=== PATIENT | female | born 1985 | race Caucasian/White ===

== ENCOUNTER → 2020-07-02 10:44 | Outpatient (CLI) | payer OTHER, SELFPAY ==
--- NOTE | 2020-07-02 10:48 | DI.MRI.S_ITS ---
PROCEDURE: MR CERVICAL SPINE WO CON INDICATIONS: Hand numbness TECHNIQUE: Noncontrast sagittal T1 spin echo and T2 fast spin echo, sagittal STIR, foraminal oblique sagittal T2 fast spin echo, and axial gradient echo or T2 fast spin echo through the cervical spine. COMPARISON: None. FINDINGS: Image quality: Excellent. Alignment and Curvature: Loss of normal cervical lordosis is present. Bone Marrow: Marrow demonstrates normal overall signal. Spinal Cord: Visualized spinal cord has normal size and signal. No cerebellar tonsillar herniation. Paraspinous Soft Tissues: No paravertebral masses. Prevertebral soft tissues are normal in thickness. C2-C3: Normal appearance. C3-C4: Normal appearance. C4-C5: Normal appearance. C5-C6: Mild disc desiccation and diffuse disc bulge. Mild facet and uncovertebral hypertrophy bilaterally. Mild canal stenosis. Mild bilateral foraminal stenosis. C6-C7: Normal appearance. C7-T1: Mild facet and uncovertebral hypertrophy bilaterally. No canal stenosis. Mild bilateral foraminal stenosis. IMPRESSION: 1. Multilevel degenerative disc and facet disease, as well as uncovertebral hypertrophy. 2. Mild multilevel canal and foraminal stenoses. No neural impingement. Dictated by: Ray Ramesh M.D. on 07/02/2020 at 11:29 Approved by: Ray Ramesh M.D. on 07/02/2020 at 11:30
== END ==
PROVIDERS: Referring Provider Physical Medicine & Rehabilitation; Visit Provider Physical Medicine & Rehabilitation
DX: R20.0 Anesthesia of skin (principal); M50.322 Other cervical disc degeneration at C5-C6 level; M48.02 Spinal stenosis, cervical region
CPT/HCPCS: 72141

== ENCOUNTER 2020-12-04 17:56 | Outpatient (CLI) | payer OTHER, SELFPAY | END 2020-12-04 18:26 | disposition home or self-care (01) | LOC: LABOR 18:08 → OB 12-05 08:43 | PROVIDERS: Referring Provider Nurse Practitioner Obstetrics & Gynecology; Visit Provider Nurse Practitioner Obstetrics & Gynecology | DX: O30.002 Twin pregnancy, unspecified number of placenta and unspecified number of amniotic sacs, second trimester (principal); Z3A.24 24 weeks gestation of pregnancy | CPT/HCPCS: G0378; G0379 ==

== ENCOUNTER 2020-12-04 18:35 | Emergency (ER) | payer OTHER, SELFPAY ==
[2020-12-04 18:59] VITALS: BP 120/84; PULSE 76; RESP 16; TEMP 36.5; O2SAT 99
[2020-12-04 19:21] LABS: RBC Urine None Seen (0-5/HPF)
[2020-12-04 19:25] LABS: Appearance Urine UA CLEAR; Bilirubin Urine UA NEGATIVE (NEGATIVE); Color Urine UA YELLOW; Glucose Urine UA NEGATIVE (Negative); Ketones Urine UA NEGATIVE (NEGATIVE); Leukocyte Esterase Urine UA NEGATIVE (NEGATIVE); Nitrite Urine UA NEGATIVE (Negative); Occult Blood Urine UA NEGATIVE (Negative); Protein Urine UA NEGATIVE (Negative); Urobilinogen Urine UA 0.2 E.U./dL (0.2)
[2020-12-04 19:37] LABS: Squamous Epithelial Cell Urine 1-5 /HPF (0-5/HPF); WBC Urine 0-1/HPF (0-5/HPF)
[2020-12-04 19:38] LABS: Bacteria Urine Moderate (10-30); Culture Indicated Urine Cult Not Indicated
--- NOTE | 2020-12-04 19:42 | ED.ABDPAIN ---
HPI - Abdominal Pain General Chief Complaint: Abdominal Pain Stated Complaint: Pelvic,Low Back, Hip Pain, 25 Wks Preg, BC Sent Ba Time Seen by Provider: 12/04/20 19:26 History of Present Illness HPI narrative: 35-year-old female nonsmoker at 25 weeks presents with her in the chief complaint of about 8 weeks of worsening right lower quadrant pain with radiation to her back. She states it is significantly worse over the past few days. She seems to get worse when she moves and improves slightly with rest. She has nausea but denies any vomiting. She has had no fever or chills. She denies vaginal bleeding, discharge or leakage of fluid. She has had the occasional episode of difficulty with bowel movements. She does have a history of kidney stones. She went to labor and delivery prior to coming to see us and was given a clean bill of health and referred to us for further diagnostic efforts Related Data Allergies Allergy/AdvReac Type Severity Reaction Status Date / Time No Known Drug Allergies Allergy Verified 12/04/20 18:59 Review of Systems Review of Systems Narrative: GENERAL: Denies chills, fatigue, malaise, fever, sweats. HEENT: Denies sinus pain, ear pain, sore throat, difficulty swallowing, dizziness. RESPIRATORY: Denies dyspnea, cough, wheezing, hemoptysis, sputum. CARDIOVASCULAR: Denies chest pain, palpitations, orthopnea, edema, GASTROINTESTINAL: See HPI : Denies dysuria, frequency, incontinence, hematuria, urinary retention. MUSCULOSKELETAL: denies weakness, joint pain, or bony pain SKIN: Denies rash, skin lesions, or other NEUROLOGIC: Denies weakness, headache, numbness, change in speech, confusion, seizures, incoordination. PSYCHIATRIC: No concerning psychosocial issues. 12 point review of systems is negative except for those stated above Exam Narrative Exam Narrative: GENERAL: [35] year old patient appears stated age. Well-developed patient, in mild distress. HEAD: Atraumatic. Normocephalic. EYES: Pupils equal round and reactive. Extraocular motions intact. No scleral icterus. No injection or drainage. ENT: Nose without bleeding, purulent drainage. Throat without erythema, tonsillar hypertrophy or exudate. Airway patent. NECK: Trachea midline. Non tender CARDIOVASCULAR: Regular rate and rhythm without murmurs, gallops, or rubs. RESPIRATORY: Clear to auscultation. Breath sounds equal bilaterally. No wheezes, rales, or rhonchi. GASTROINTESTINAL: Abdomen soft, gravid above the umbilicus, nondistended. EXTREMITIES: No edema or joint tenderness. BACK: Nontender without deformity or crepitance. No flank tenderness. NEURO: AOx3. SKIN: No rash or erythema of visible areas Initial Vital Signs Initial Vital Signs: Vital Signs Temperature 97.7 F 12/04/20 18:59 Pulse Rate 76 12/04/20 18:59 Respiratory Rate 16 12/04/20 18:59 Blood Pressure 120/84 12/04/20 18:59 Pulse Oximetry 99 12/04/20 18:59 Course Orders Ordered: Discontinued Medications Acetaminophen (Acetaminophen 325 Mg Tablet) 975 mg PO NOW ONE Stop: 12/04/20 20:41 Last Admin: 12/04/20 21:32 Dose: 975 mg Documented by: [email or web address] Sodium Chloride (Normal Saline 0.9%) 1,000 mls @ 125 mls/hr IV CONT YAMILEX Last Infusion: 12/04/20 23:10 Dose: 0 mls/hr Documented by: JESUS MANUEL Admin: 12/04/20 20:10 Dose: 125 mls/hr Documented by: [email or web address] Lidocaine (Lidocaine Patch 1 Each Adh..Patch) 1 each TOP NOW ONE Stop: 12/04/20 23:45 Last Admin: 12/04/20 23:59 Dose: 1 each Documented by: JUSTIN Ondansetron HCl (Ondansetron 4 Mg/2 Ml Inj) 4 mg IV NOW ONE Stop: 12/04/20 19:51 Last Admin: 12/04/20 20:11 Dose: 4 mg Documented by: ANABELLA Vital Signs Vital signs: Vital Signs - 8 hr 12/04/20 23:00 12/04/20 23:30 Pulse Rate 66 70 Respiratory Rate 14 16 Blood Pressure 99/57 L 105/76 Pulse Oximetry 100 98 MDM - Abdominal Pain Lab Data Result diagrams: 12/04/20 20:07 12/04/20 20:07 Labs: Lab Results 12/04/20 12/04/20 12/04/20 Range/Units 19:03 20:07 20:07 WBC 14.7 H (4.5-11.0) X10^3/uL RBC 3.55 L (4.0-5.2) X10^6/uL Hgb 11.5 L (12.0-16.0) g/dL Hct 32.4 L (36-46) % MCV 91.3 (80-100) fL MCH 32.5 (26-34) PG MCHC 35.6 (30-36) % RDW 12.3 (11.6-14.8) % Plt Count 328 (150-400) X10^3/uL Neut % (Auto) 72.3 (50-75) % Lymph % (Auto) 21.4 L (25-40) % [place] % (Auto) 3.8 (3-14) % Eos % (Auto) 1.7 L (2-4) % Baso % (Auto) 0.8 (0-2) % Neut # (Auto) 37268 H (3938-8754) /uL Lymph # (Auto) 3200 (4730-4278) /uL [place] # (Auto) 600 (0-900) /uL Eos # (Auto) 300 (0-450) /uL Baso # (Auto) 100 (0-100) /uL Sodium 132 L (137-145) mmol/L Potassium 4.0 (3.4-5.1) mmol/L Chloride 108 H (98-107) mmol/L Carbon Dioxide 19 L (22-32) mmol/L BUN 12 (7-17) mg/dL Creatinine 0.43 L (0.52-1.04) mg/dL Estimated GFR > 60.0 (>60) mL/min BUN/Creatinine Ratio 27.9 H (6-22) Glucose 97 (70-100) mg/dL Calcium 9.4 (8.4-10.2) mg/dL Urine Color Yellow Urine Appearance Clear Urine pH 7.0 (4.5-8.0) Ur Specific [place] 1.010 (1.000-1.035) Urine Protein Negative (Negative) Urine Glucose (UA) Negative (Negative) g/dL Urine Ketones Negative (NEGATIVE) Urine Occult Blood Negative (Negative) Urine Nitrate Negative (Negative) Urine Bilirubin Negative (NEGATIVE) Urine Urobilinogen 0.2 (0.2) E.U./dL Ur Leukocyte Esterase Negative (NEGATIVE) Urine RBC None seen (0-5/HPF) Urine WBC 0-1/hpf (0-5/HPF) Ur Squamous Epith Cells 1-5 /hpf (0-5/HPF) Urine Bacteria Moderate (10-30) H (None) Ur Culture Indicated? Cult not indicated Imaging Data US - OB: Radiologist's Impression: No renal abnormality noted, bladder unremarkable, living twin gestation noted. No evidence of kidney stone or hydronephrosis of MDM Narrative Medical decision making narrative: Patient with very reassuring physical exam and chronic flank pain for upwards of 8 weeks. Labs, imaging, exam are reassuring. No evidence of gallbladder disease, hydronephrosis or hydroureter, UTI, pyelonephritis or other Patient is still having some discomfort on discharge, close follow-up recommended, return precautions given and questions answered to her apparent satisfaction. Discharge Plan Departure Patient Disposition: Home Clinical Impression: Chronic flank pain Instructions: DI for Acute Abdominal Pain Activity Restrictions/Additional Instructions: *You have been diagnosed with [flank pain, your urine shows no sign of infection. Ultrasound was very reassuring and there is no evidence of a kidney problem, kidney stone or infection.] *What to do: *Please continue to take your regular medications as directed. [ ] New medication prescriptions sent to your pharmacy: [ ] [ ] New medication written as a paper prescription [x ] No new medications given *Please follow up with your primary care provider in 2-3 days, call for an appointment. Let them know you were seen in the Emergency Department and that we ask that you be seen in follow up. We will electronically transmit a record of today's note if your PCP is in our system *If you do not have a primary care provider please contact the [facility] Resource line at [phone]. They will ask some questions about your medical history and help get you set up with a doctor in the community. *Return to Emergency Department if you should have any new, worsening or concerning symptoms, such as [fever greater than 101 F, shaking chills, worsening pain, persistent vomiting or other bothersome symptoms] Referrals: Bettie Priest MD [Physician] -
--- NOTE | 2020-12-04 19:50 | DI.US.S_ITS ---
PROCEDURE: US RENAL COMPLETE INDICATIONS: Right flank pain, history of stones, 25 weeks TECHNIQUE: Real-time scanning was performed of the kidneys and bladder, with image documentation. COMPARISON: None. FINDINGS: Kidneys: Kidneys are normal in size. Right kidney measures 10.1 cm long; left kidney measures 11.0 cm long. Right renal cortical thickness is 1.1 cm; left renal cortical thickness is 1.1 cm. Renal cortical echotexture is normal. No hydronephrosis or nephrolithiasis. No suspicious solid mass lesions. Bladder: Pre-void bladder volume is 123 mL. Post-void imaging was not performed. Neither ureteral jet identified. Miscellaneous: No free pelvic fluid. Living intrauterine twin noted. IMPRESSION: No hydronephrosis. No sonographic evidence of renal stones. Living intrauterine twin . Dictated by: Jazmin Carrasco MD, PhD on 12/05/2020 at 8:55 Approved by: Jazmin Carrasco MD, PhD on 12/05/2020 at 8:57
[2020-12-04 20:00] VITALS: BP 111/77; PULSE 71; RESP 17; O2SAT 98
[2020-12-04] MEDS: SODIUM CHLORIDE 0.9% 1,000 ML 125 ML IV (20:10)
[2020-12-04] MEDS: ONDANSETRON 4 MG/2 ML INJ IV (20:11)
[2020-12-04 20:29] LABS: Add Manual Diff / Slide Review NO; Basophils Absolute Auto 100 /uL (0-100); Basophils Percent Auto 0.8 % (0-2); Eosinophils Absolute Auto 300 /uL (0-450); Eosinophils Percent Auto 1.7 % (2-4); Hematocrit 32.4 % (36-46); Hemoglobin 11.5 g/dL (12.0-16.0); Lymphocytes Absolute Auto 3200 /uL (1100-4500); Lymphocytes Percent Auto 21.4 % (25-40); Mean Corpuscular HGB Conc 35.6 % (30-36); Mean Corpuscular Hemoglobin 32.5 PG (26-34); Mean Corpuscular Volume 91.3 fL (80-100); Monocytes Absolute Auto 600 /uL (0-900); Monocytes Percent Auto 3.8 % (3-14); Neutrophils Absolute Auto 10600 /uL (1500-7000); Neutrophils Percent Auto 72.3 % (50-75); Platelet Count 328 X10^3/uL (150-400); Red Blood Cell Count 3.55 X10^6/uL (4.0-5.2); Red Cell Distribution Width 12.3 % (11.6-14.8); White Blood Cell Count 14.7 X10^3/uL (4.5-11.0)
[2020-12-04 20:36] LABS: BUN Creatinine Ratio 27.9 (6-22); Blood Urea Nitrogen 12 mg/dL (7-17); Calcium 9.4 mg/dL (8.4-10.2); Carbon Dioxide 19 mmol/L (22-32); Chloride 108 mmol/L (98-107); Estimated Glomerular Filt Rate > 60.0 mL/min (>60); Glucose 97 mg/dL (70-100); HEMOLYSIS 21 (0-50); Sodium 132 mmol/L (137-145)
[2020-12-04 21:10] VITALS: BP 122/66; PULSE 66; RESP 18; O2SAT 100
[2020-12-04] MEDS: ACETAMINOPHEN 325 MG TABLET 975 MG PO (21:32)
[2020-12-04 23:00] VITALS: BP 99/57; PULSE 66; RESP 14; O2SAT 100
[2020-12-04 23:30] VITALS: BP 105/76; PULSE 70; RESP 16; O2SAT 98
[2020-12-04] MEDS: LIDOCAINE PATCH 1 EACH ADH..PATCH TOP (23:59)
== END 2020-12-05 | disposition home or self-care (01) ==
PROVIDERS: Emergency Provider Emergency Medicine
DX: O26.892 Other specified pregnancy related conditions, second trimester (principal); R10.31 Right lower quadrant pain; Z3A.25 25 weeks gestation of pregnancy
CPT/HCPCS: 36415; 76770; 80048; 81001; 85025; 96361; 96374; 99284; J2405

== ENCOUNTER → 2020-12-12 13:03 | Outpatient (CLI) | payer OTHER, SELFPAY ==
[2020-12-12 14:28] LABS: Hematocrit 33.2 % (36-46); Hemoglobin 11.7 g/dL (12.0-16.0)
[2020-12-12 15:29] LABS: GTT (PREG) 1 Hour PP 50gm Dose 109 mg/dL (76-139)
== END ==
PROVIDERS: Referring Provider Obstetrics & Gynecology; Visit Provider Obstetrics & Gynecology
DX: O30.042 Twin pregnancy, dichorionic/diamniotic, second trimester (principal)
CPT/HCPCS: 36415; 82950; 85014; 85018

== ENCOUNTER 2021-01-07 16:27 | Observation (INO) | payer OTHER, SELFPAY ==
--- NOTE | 2021-01-07 16:52 | DI.US.S_ITS ---
PROCEDURE: US OB LIMITED INDICATIONS: DECREASED MOVEMENT OUTSIDE/PRIOR DATING DATA: Last menstrual period (LMP): 06/15/2020. LMP-based estimated date of delivery (TJ): 03/22/2021. First dating scan (date and location): 01/07/2021. Estimated date of delivery (TJ) from first dating scan: 04/03/2021. TECHNIQUE: Real-time scanning was performed of the fetus, with image documentation. biometry was performed. COMPARISON: [facility], , OB >= 14 WEEKS FETUS, 12/12/2020, 12:54. FINDINGS: Dichorionic diamniotic intrauterine gestations are present. Presentation: Twin A/B are breech. Placenta: Placental position is posterior x 2, without previa. Amniotic fluid index: Twin A 13.4 cm; Twin B 20.2 cm. heart rate: Twin A 145 bpm; Twin B 152 bpm. Maternal cervical canal: 3.1 cm long. Normal lower limit is 2.5 cm. No funneling. biometry. Twin A: BPD: 7 cm, 28 weeks 1 day HC: 25.3 cm, 27 weeks 4 days AC: 23.3 cm, 27 weeks 5 days FL: 5.1 cm, 27 weeks 3 days Twin B: BPD: 7.3 cm, 29 weeks 2 days HC: 26 cm, 28 weeks 2 days AC: 21.4 cm, 26 weeks 0 days FL: 5.1 cm, 27 weeks 1 day Estimated gestational age from today's scan: Twin A/B: 27 weeks 5 days. Twin A: 1095 grams 3%; Twin B: 984 grams 1%. IMPRESSION: 1. Dichorionic diamniotic living intrauterine fetuses at 27 weeks 5 days based on today's ultrasound. Twin A is in the 3rd % and Twin B is in the 1st % for weight. Suspect intrauterine growth restriction. 2. Normal placentas and amniotic fluid. Dictated by: Doron Grimes M.D. on 01/07/2021 at 17:09 Approved by: Doron Grimes M.D. on 01/07/2021 at 17:22
[2021-01-07] MEDS: LACTATED RINGERS 1,000 ML 1000 ML IV (17:50)
[2021-01-07] MEDS: ONDANSETRON 4 MG/2 ML INJ IV (17:59)
[2021-01-07 18:32] LABS: Alanine Aminotransferase 143 IU/L (<35); Albumin 3.3 g/dL (3.5-5.0); Albumin Globulin Ratio 1.2 (1.0-2.8); Alkaline Phosphatase 166 U/L (38-126); Aspartate Aminotransferase 131 IU/L (14-36); BUN Creatinine Ratio 14.7 (6-22); Bilirubin Total 0.5 mg/dL (0.2-1.3); Blood Urea Nitrogen 14 mg/dL (7-17); Carbon Dioxide 21 mmol/L (22-32); Chloride 108 mmol/L (98-107); Estimated Glomerular Filt Rate > 60.0 mL/min (>60); Globulin 2.7 g/dL (1.7-4.1); Glucose 78 mg/dL (70-100); HEMOLYSIS 31 (0-50); Potassium 4.2 mmol/L (3.4-5.1); Sodium 136 mmol/L (137-145)
[2021-01-07] MEDS: METOCLOPRAMIDE 10 MG/2 ML INJ IV (18:51)
[2021-01-07] MEDS: LACTATED RINGERS 1,000 ML 120 ML IV (19:00)
[2021-01-07 19:23] LABS: COVID19 - ADMIT (NP swab/PCR) Negative (Negative)
[2021-01-07 20:01] LABS: Creatinine Urine Random 22.8 mg/dL; Protein Creatinine Ratio Urine 0.65 GRAM/24H
[2021-01-07 20:02] LABS: Protein (Total) Urine Random 15 mg/dL (0-12)
[2021-01-07 20:04] LABS: Add Manual Diff / Slide Review NO; Basophils Absolute Auto 100 /uL (0-100); Basophils Percent Auto 0.5 % (0-2); Eosinophils Absolute Auto 100 /uL (0-450); Eosinophils Percent Auto 0.9 % (2-4); Hematocrit 41.2 % (36-46); Hemoglobin 13.9 g/dL (12.0-16.0); Lymphocytes Absolute Auto 3400 /uL (1100-4500); Lymphocytes Percent Auto 25.8 % (25-40); Mean Corpuscular HGB Conc 33.7 % (30-36); Mean Corpuscular Hemoglobin 30.9 PG (26-34); Mean Corpuscular Volume 91.7 fL (80-100); Monocytes Absolute Auto 400 /uL (0-900); Monocytes Percent Auto 2.9 % (3-14); Neutrophils Absolute Auto 9300 /uL (1500-7000); Neutrophils Percent Auto 69.9 % (50-75); Platelet Count 281 X10^3/uL (150-400); Red Cell Distribution Width 13.5 % (11.6-14.8); White Blood Cell Count 13.3 X10^3/uL (4.5-11.0)
== END 2021-01-07 20:24 | disposition home or self-care (01) ==
PROVIDERS: Admitting Provider Obstetrics & Gynecology; PCP Obstetrics & Gynecology; Referring Provider Obstetrics & Gynecology; Visit Provider Obstetrics & Gynecology
DX: O36.8132 Decreased fetal movements, third trimester, fetus 2 (principal); O30.003 Twin pregnancy, unspecified number of placenta and unspecified number of amniotic sacs, third trimester; Z3A.29 29 weeks gestation of pregnancy
CPT/HCPCS: 36415; 59025; 59050; 76812; 76815; 80053; 82570; 84156; 85025; 87635; 96360; C9803; G0378; G0379; J2405; J2765